=== PATIENT | male | born 1940 | race Caucasian/White ===

== ENCOUNTER 2020-12-03 23:59 | Inpatient (IN) | payer MEDICARE, BC ==
[~2020-12-03] VITALS: Ht 188 cm; Wt 145.9 kg
[2020-12-04] MEDS ORDERED: ALLO100 PO (00:51)
[2020-12-04] MEDS ORDERED: AMLO5 PO (00:52)
[2020-12-04] MEDS ORDERED: EUTHYROX75 MCG PO (00:53)
[2020-12-04] MEDS ORDERED: GABA600 PO (00:53)
[2020-12-04] MEDS ORDERED: LISI20 PO (00:54)
[2020-12-04] MEDS ORDERED: METO2.5 PO (00:54)
[2020-12-04] MEDS ORDERED: OMEP20ER PO (00:55)
[2020-12-04] MEDS ORDERED: PRAM.5 PO (00:55)
[2020-12-04] MEDS ORDERED: TORS10 PO (00:56)
[2020-12-04] MEDS ORDERED: K-TAB ER20 ME1 PO (00:56)
[2020-12-04 01:52] LABS: Alanine Aminotransfer (ALT/SGP 17 U/L (12-78); Albumin, Blood 2.9 g/dL (3.4-5.0); Albumin/Globulin Ratio 0.7 (0.8-1.8); Alk Phos 162 U/L (50-136); Anion Gap 6 mmol/L (6-16); Aspartate Aminotrans (AST/SGOT 15 U/L (12-37); Bilirubin, Total 0.6 mg/dL (0.1-1.0); Blood Urea Nitrogen 41 mg/dL (8-24); Bun/Creatinine Ratio 23.8 (12.0-20.0); CO2, Blood 31 mmol/L (21-32); CPK Creatine Kinase 96 U/L (39-308); Calcium, Blood 8.5 mg/dL (8.5-10.1); Chloride, Blood 103 mmol/L (98-108); Creatinine, Blood 1.72 mg/dL (0.60-1.20); Globulin, Blood 3.9 g/dL (2.2-4.0); Glomerular Filtration Rate 41 (60-); Glucose, Blood 98 mg/dL (70-99); Potassium, Blood 4.1 mmol/L (3.5-5.5); Sodium, Blood 140 mmol/L (136-145); Total Protein, Blood 6.8 g/dL (6.4-8.2); Troponin I <0.015 ng/mL (0.000-0.040)
[2020-12-04 01:56] LABS: BASOPHILS ABSOLUTE AUTO 0.04 K/mm3 (0.00-0.23); BASOPHILS PERCENT AUTO 1 % (0-2); EOSINOPHILS ABSOLUTE AUTO 0.11 K/mm3 (0.00-0.68); EOSINOPHILS PERCENT AUTO 2 % (0-6); Hematocrit 37.9 % (37.0-53.0); Hemoglobin 11.9 g/dL (13.5-17.5); IMMATURE GRAN ABSOLUTE AUTO 0.03 K/mm3 (0.00-0.10); IMMATURE GRAN PERCENT AUTO 1 % (0-1); LYMPHOCYTES ABSOLUTE AUTO 1.23 K/mm3 (0.84-5.20); LYMPHOCYTES PERCENT AUTO 24 % (21-46); MONOCYTES ABSOLUTE AUTO 0.55 K/mm3 (0.16-1.47); MONOCYTES PERCENT AUTO 11 % (4-13); Mean Corpuscular HGB 30.5 pg (26.0-34.0); Mean Corpuscular HGB Conc 31.4 g/dL (31.5-36.5); Mean Corpuscular Volume 97 fL (80-100); Mean Platelet Volume 11.2 fL (9.1-12.4); NEUTROPHILS ABSOLUTE AUTO 3.13 K/mm3 (1.96-9.15); NEUTROPHILS PERCENT AUTO 61 % (41-73); Platelet Count 184 K/mm3 (150-400); RDW Coefficient Variation 15.4 % (11.7-14.2); RDW Standard Deviation 55.1 fL (35.1-46.3); White Blood Cell Count 5.09 K/mm3 (4.00-11.30)
[2020-12-04] MEDS ORDERED: FURO80 PO (02:15)
[2020-12-04] MEDS ORDERED: CEPH500 PO (02:17)
[2020-12-04] MEDS ORDERED: DOXA4 PO (02:17)
[2020-12-04] MEDS ORDERED: [UNRECOGNIZED DRUG - OTHER] PO (02:21)
[2020-12-04] MEDS ORDERED: TORSE20 PO (03:07)
--- NOTE | 2020-12-04 08:04 | NUR ---
SHIFT SUMMARY: PATIENT ARRIVED TO THE FLOOR VIA GURNEY, TRANSFERRED USING SLIDER SHEET. AOX3, PAUMA, FORGETFUL AT TIMES. LUNG SOUNDS CLEAR IN UPPER LOBES, CRACKLES IN THE BASES. NO COUGH OR CONGESTION NOTED. ORTHOPENEA, DYSPNEA WITH MOVEMENT. SWELLING HAS BEEN GOING ON FOR MONTHS. BNP 3400. CELLULITIS TO THE RLS PER DX. LEG IS PINK AND WARM TO THE TOUCH. TELE PLACED- SINUS, DOES HAVE PACEMAKER TO LEFT UPPER CHEST. NO CHEST PAIN OR PALPITATIONS. EDEMA IS +4 FROM TOES UP TO HIPS AND STARTING TO GO TO SIDE OF TRUNK. NO PAIN AT THIS TIME, STATES HE WILL DUE TO THE BED. REGULAR BM. MAK CATH WAS PLACED IN WING, BUT THE PATIENT PULLED IT OUT LAST NIGHT THINKING HE HAD TO GET UP AND FORGOT HE HAD IT IN. LARGE AMOUNT OF BLOOD LOSS NOTED ACROSS THE FLOOR. EVENTUALLY BLEEDING DID STOP. NEW 16F CATH WAS PLACED AND UA SENT. 80MG OF IV LASIX WAS GIVEN AT [facility]. 5700ML OUT TOTAL SINCE THE PATIENT THE 80ML OF IV LASIX OVER IN [facility]. STILL GOTS SCANT AMOUNT OF BLOOD COMING FROM [place]. BED ALARM WAS PLACED AFTER THAT. SLEPT REST OF SHIFT. WILL REPORT TO DAYSHIFT RN.
[2020-12-04 09:47] LABS: BASOPHILS ABSOLUTE AUTO 0.03 K/mm3 (0.00-0.23); BASOPHILS PERCENT AUTO 1 % (0-2); EOSINOPHILS ABSOLUTE AUTO 0.09 K/mm3 (0.00-0.68); EOSINOPHILS PERCENT AUTO 2 % (0-6); Hematocrit 34.3 % (37.0-53.0); IMMATURE GRAN ABSOLUTE AUTO 0.01 K/mm3 (0.00-0.10); IMMATURE GRAN PERCENT AUTO 0 % (0-1); LYMPHOCYTES ABSOLUTE AUTO 0.72 K/mm3 (0.84-5.20); LYMPHOCYTES PERCENT AUTO 19 % (21-46); MONOCYTES ABSOLUTE AUTO 0.39 K/mm3 (0.16-1.47); MONOCYTES PERCENT AUTO 10 % (4-13); Mean Corpuscular HGB 30.4 pg (26.0-34.0); Mean Corpuscular HGB Conc 32.1 g/dL (31.5-36.5); Mean Corpuscular Volume 95 fL (80-100); Mean Platelet Volume 10.7 fL (9.1-12.4); NEUTROPHILS ABSOLUTE AUTO 2.56 K/mm3 (1.96-9.15); NEUTROPHILS PERCENT AUTO 67 % (41-73); Platelet Count 162 K/mm3 (150-400); RDW Coefficient Variation 15.1 % (11.7-14.2); RDW Standard Deviation 52.6 fL (35.1-46.3); Red Blood Cell Count 3.62 M/mm3 (4.30-5.90)
[2020-12-04 10:17] LABS: CPK Creatine Kinase 64 U/L (39-308)
[2020-12-04 17:21] LABS: Source, Urine Clean Catch
[2020-12-04 17:45] LABS: Appearance, Urine Clear (Clear); Bilirubin, Urine Neg (Neg); Blood, Urine 5+ (Neg); Color, Urine Yellow (P-Yellow); Glucose Qualitative, Urine Neg (Neg); Ketones, Urine Neg (Neg); Leukocyte Esterase, Urine Neg (Neg); Nitrite, Urine Neg (Neg); Protein, Urine 3+ (Neg); Urobilinogen, Urine NORM (Normal)
[2020-12-04 18:25] LABS: Bacteria Few /hpf; Red Blood Cells, Urine 50-100 /hpf (0-2); Squamous Epithelial Cells Not Seen /hpf (Few); White Blood Cells, Urine Rare /hpf (0-5)
--- NOTE | 2020-12-04 19:45 | NUR ---
SHIFT SUMMARY: NO ACUTE EVENTS TO REPORT THIS SHIFT. PT A&O; [place]; CALM AND COOPERATIVE WITH CARE. PATIENT ACCIDENTALLY PULLED MAK OUT OF BLADDER/URETHRA PRIOR TO THIS SHIFT; NEW MAK PLACED; CONTINUING SMALL AMOUNTS OF BLOOD AT [facility]; H&H DOWN; DR ROCK; CBC PLANNED FOR AM LABS. DIURESIS CONTINUING. REPORT GIVEN TO ONCOMING RN.
[2020-12-05 05:02] LABS: BASOPHILS ABSOLUTE AUTO 0.04 K/mm3 (0.00-0.23); BASOPHILS PERCENT AUTO 1 % (0-2); EOSINOPHILS ABSOLUTE AUTO 0.12 K/mm3 (0.00-0.68); EOSINOPHILS PERCENT AUTO 3 % (0-6); Hematocrit 30.8 % (37.0-53.0); Hemoglobin 10.2 g/dL (13.5-17.5); IMMATURE GRAN ABSOLUTE AUTO 0.01 K/mm3 (0.00-0.10); IMMATURE GRAN PERCENT AUTO 0 % (0-1); LYMPHOCYTES ABSOLUTE AUTO 1.02 K/mm3 (0.84-5.20); LYMPHOCYTES PERCENT AUTO 25 % (21-46); MONOCYTES ABSOLUTE AUTO 0.41 K/mm3 (0.16-1.47); MONOCYTES PERCENT AUTO 10 % (4-13); Mean Corpuscular HGB 31.1 pg (26.0-34.0); Mean Corpuscular HGB Conc 33.1 g/dL (31.5-36.5); Mean Corpuscular Volume 94 fL (80-100); Mean Platelet Volume 10.8 fL (9.1-12.4); NEUTROPHILS ABSOLUTE AUTO 2.51 K/mm3 (1.96-9.15); NEUTROPHILS PERCENT AUTO 61 % (41-73); Platelet Count 157 K/mm3 (150-400); RDW Coefficient Variation 14.9 % (11.7-14.2); RDW Standard Deviation 51.5 fL (35.1-46.3); Red Blood Cell Count 3.28 M/mm3 (4.30-5.90); White Blood Cell Count 4.11 K/mm3 (4.00-11.30)
[2020-12-05 05:44] LABS: Bun/Creatinine Ratio 21.5 (12.0-20.0); Calcium, Blood 8.2 mg/dL (8.5-10.1); Creatinine, Blood 1.72 mg/dL (0.60-1.20); Potassium, Blood 3.6 mmol/L (3.5-5.5)
--- NOTE | 2020-12-05 07:36 | NUR ---
SHIFT SUMMARY NO ACUTE CHANGES OVERNIGHT. PT AOX4. PT STILL HAS SOME SMALL CLOTS WHEN IN HIS URETHRA LAST NIGHT, ALSO SOME SMALL BLEEDING WHEN HE GETS UP IN THE BATHROOM. PT DENIES PAIN. MAK REMAIN INTACT, PATENT AND DRAINING WELL. PT'S IV ON R ARM ALSO INFILTRATED AND WAS BLEEDING IN THE MORNING. DC'D IV, ATTEMPTED TO PLACE A NEW ONE BUT WAS UNSUCCESSFUL. PT WOULD LIKE TO HAVE SOMEONE WHO CAN GET IT FOR 1 TRY, NOTIFIED CHARGE NURSE FOR ASSISTANCE. CALL LIGHT WITHIN REACH. WILL PROVIDE REPORT TO ONCOMING NURSE.
--- NOTE | 2020-12-05 19:28 | NUR ---
SHIFT SUMMARY: NO ACUTE CHANGES TO REPORT THIS SHIFT. PT A&O; [place]; CALM AND COOEPRATIVE WITH CARE. NO C/O PAIN/NAUSEA THIS SHIFT. MAK D/C'd THIS SHIFT; PT VOIDING SPONTANEOUSLY. TELE IN PLACE; PACED @ 60 PER SHOP AND ALTERATION TAILOR. DIURESIS CONTINUING. REPORT GIVEN TO ONCOMING RN.
[2020-12-06 04:50] LABS: BASOPHILS ABSOLUTE AUTO 0.03 K/mm3 (0.00-0.23); BASOPHILS PERCENT AUTO 1 % (0-2); EOSINOPHILS ABSOLUTE AUTO 0.13 K/mm3 (0.00-0.68); EOSINOPHILS PERCENT AUTO 4 % (0-6); Hematocrit 30.2 % (37.0-53.0); Hemoglobin 9.9 g/dL (13.5-17.5); IMMATURE GRAN ABSOLUTE AUTO 0.02 K/mm3 (0.00-0.10); IMMATURE GRAN PERCENT AUTO 1 % (0-1); LYMPHOCYTES PERCENT AUTO 24 % (21-46); MONOCYTES ABSOLUTE AUTO 0.42 K/mm3 (0.16-1.47); MONOCYTES PERCENT AUTO 11 % (4-13); Mean Corpuscular HGB 30.8 pg (26.0-34.0); Mean Corpuscular HGB Conc 32.8 g/dL (31.5-36.5); Mean Corpuscular Volume 94 fL (80-100); Mean Platelet Volume 11.4 fL (9.1-12.4); NEUTROPHILS ABSOLUTE AUTO 2.26 K/mm3 (1.96-9.15); NEUTROPHILS PERCENT AUTO 60 % (41-73); Platelet Count 170 K/mm3 (150-400); RDW Coefficient Variation 14.8 % (11.7-14.2); RDW Standard Deviation 51.5 fL (35.1-46.3); Red Blood Cell Count 3.21 M/mm3 (4.30-5.90); White Blood Cell Count 3.76 K/mm3 (4.00-11.30)
[2020-12-06 05:13] LABS: Bun/Creatinine Ratio 19.9 (12.0-20.0); Calcium, Blood 8.6 mg/dL (8.5-10.1); Creatinine, Blood 1.66 mg/dL (0.60-1.20); Magnesium, Blood 1.8 mg/dL (1.6-2.4); Potassium, Blood 3.4 mmol/L (3.5-5.5)
--- NOTE | 2020-12-06 06:25 | NUR ---
PATIENT SLEPT WELL OVERNIGHT. WAKING ONLY TO USE THE BATHROOM. NO COMPLAINTS OF PAIN OR DISCOMFORT OVERNIGHT. NO CHANGES FROM PREVIOUS ASSESSMENT NOTEDD
[2020-12-06] MEDS ORDERED: SPIR25 PO (11:14)
--- NOTE | 2020-12-06 12:04 | NUR ---
PT DISCHARGED TO HOME. PT MEDS FAXED TO [facility]. JESSICA [facility]. PT FROM [facility]. BROTHER PICKED HIM UP TODAY. PT EDUCATED ABOUT THE MEDICATION CHANGED. PT STATED HE DOES NOT WANT TO TAKE THE SPIRONOLACTONE WHICH IS THE NEW MEDS; PT EDUCATED ABOUT WHY IS IT IMPORTANT TO FOLLOW DR INSTRUCTIONS. PT WILL FU TO PCP AND PRACTICE ADMINISTRATOR NEXT WEEK. HE ALREADY HAVE AN APPOINTMENT SET UP. HOME MEDS AND VALUABLE ITEM WITH PT. NO SIGNS OF DISTRESS. PT GIVEN DC PACKET.
== END 2020-12-06 13:15 | disposition home or self-care (01) | DRG 291 ==
LOC: ER 23:59 → MEDS 12-04
PROVIDERS: Internal Medicine; ADMIT Internal Medicine
DX: I13.0 Hypertensive heart and chronic kidney disease with heart failure and stage 1 through stage 4 chronic kidney disease, or unspecified chronic kidney disease (principal); J96.00 Acute respiratory failure, unspecified whether with hypoxia or hypercapnia; I50.43 Acute on chronic combined systolic (congestive) and diastolic (congestive) heart failure; G25.81 Restless legs syndrome; I25.10 Atherosclerotic heart disease of native coronary artery without angina pectoris; K21.9 Gastro-esophageal reflux disease without esophagitis; E03.9 Hypothyroidism, unspecified; N40.0 Benign prostatic hyperplasia without lower urinary tract symptoms; N18.30 Chronic kidney disease, stage 3 unspecified; D63.1 Anemia in chronic kidney disease; G62.9 Polyneuropathy, unspecified; E66.9 Obesity, unspecified; Z68.39 Body mass index [BMI] 39.0-39.9, adult; Z95.1 Presence of aortocoronary bypass graft; I25.2 Old myocardial infarction; Z95.5 Presence of coronary angioplasty implant and graft; Z88.5 Allergy status to narcotic agent; Z88.8 Allergy status to other drugs, medicaments and biological substances; Z79.899 Other long term (current) drug therapy
CPT/HCPCS: 36415; 51702; 71045; 80048; 80053; 81001; 82550; 83735; 83880; 84484; 85025; 85379; 93306; 93970; 99285; A9270; J1650; J1940